=== PATIENT | female | born 1960 | race Caucasian/White ===

== ENCOUNTER 2016-07-27 02:30 | Emergency (ER) | payer OTHER, MEDICAID ==
[~2016-07-27] VITALS: Ht 162.6 cm; Wt 100.0 kg
[~2016-07-27 02:30] MED LIST: ALBU8.5H5 INH; ALPR0.5T10 PO; ASPI-650 PO; CHOL4POW3 PO; DIAZ5TAB PO; ESOM40CA PO; GABA300C10 PO; GABA600T PO; IBUP200C PO; IBUP800T PO; META800T PO; META800T21 PO; METO-93 PO; METR500T PO; ONDA4TAB7 PO; OXCA150T3 PO; OXYC10TA6 PO; OXYC15TA PO; OXYC60TA8 PO; PROM25TA10 PO; PROM50SU6 PO; RANI150T8 PO; VANC1VIA3 PO; VERA120T74 PO
[2016-07-27 02:32] VITALS: BP 120/79
== END 2016-07-27 04:40 | disposition left against medical advice (07) ==
LOC: ED 04:30
DX: M79.605 Pain in left leg (principal); Z53.21 Procedure and treatment not carried out due to patient leaving prior to being seen by health care provider

== ENCOUNTER 2016-07-31 11:17 | Inpatient (IN) | payer OTHER, MEDICAID ==
[~2016-07-31] VITALS: Ht 162.6 cm; Wt 94.1 kg
[2016-07-31] MEDS ORDERED: SODIUM CHLORIDE 0.9% 1,000 ML IV ONE (11:25)
[2016-07-31] MEDS ORDERED: PLEASE ENTER HEIGHT AND WEIGHT MC SCH (11:29)
[2016-07-31] MEDS ORDERED: SODIUM CHLORIDE 0.9% 1,000ML IVBOLUS ONE (11:30)
[2016-07-31] MEDS ORDERED: ONDANSETRON 2MG/ML, 2ML IVPush ONE (11:30)
[2016-07-31] MEDS ORDERED: SODIUM CHLORIDE FLUSH 10ML SYR IVF ONE (11:30)
[2016-07-31] MEDS ORDERED: FAMOTIDINE 20 MG/2 ML IVP ONE (11:30)
[2016-07-31 12:07] LABS: BLOOD UREA NITROGEN 6 mg/dL (7-18)
[2016-07-31 12:10] LABS: ASPARTATE AMINO TRANSFERASE 23 U/L (15-37)
[2016-07-31] MEDS ORDERED: FAMOTIDINE 20 MG/2 ML ONE (12:10)
[2016-07-31] MEDS ORDERED: ONDANSETRON 2MG/ML, 2ML ONE (12:10)
[2016-07-31] MEDS ORDERED: NS + 40MEQ KCL 1,000 ML IV SCH (12:30)
[2016-07-31] MEDS ORDERED: POTASSIUM CHLORIDE 20 MEQ in SODIUM CHLORIDE 0.9% 1,000 ML IV ONE (13:26)
[2016-07-31] MEDS ORDERED: SODIUM CHLORIDE FLUSH 10ML SYR IVF PRN (13:30)
[2016-07-31] MEDS: NS + 40MEQ KCL 1,000 ML IV SCH (14:17)
[2016-07-31] MEDS ORDERED: POLYETHYLENE GLYCOL 17 GM PACKET PO PRN (14:30)
[2016-07-31] MEDS ORDERED: ACETAMINOPHEN 325 MG TABLET PO PRN (14:30)
[2016-07-31] MEDS ORDERED: DOCUSATE 100 MG CAPSULE PO PRN (14:30)
[2016-07-31] MEDS ORDERED: morphine SULFATE 10 MG/ML, 1ML IVPush PRN (14:30)
[2016-07-31] MEDS ORDERED: BISACODYL 10 MG SUPP PR PRN (14:30)
[2016-07-31] MEDS: NICOTINE 14MG/24 HR PATCH.TD24 TD SCH (14:30)
[2016-07-31] MEDS ORDERED: LABETALOL 5MG/ML, 20ML IVPush PRN (14:30)
[2016-07-31] MEDS ORDERED: LORazepam 2 MG/ML, 1ML IVPush PRN (15:00)
[2016-07-31] MEDS ORDERED: NS + 40MEQ KCL 1,000 ML IV ONE (15:05)
[2016-07-31] MEDS ORDERED: MAGNESIUM SULFATE PMX 2GM/50ML 50 ML IV ONE (15:30)
[2016-07-31] MEDS ORDERED: DEXTROSE 50%, 50ML SYRINGE IVPush PRN (16:30)
[2016-07-31] MEDS ORDERED: POTASSIUM CHLORIDE 20 MEQ TAB.ER.PRT PO ONE (16:30)
[2016-07-31] MEDS: INSULIN REGULAR 100 UNITS/ML, 3ML VIAL SQ-INSULIN SCH ×2 (16:30→21:00)
[2016-07-31] MEDS ORDERED: GLUCAGON 1 MG IM PRN (16:30)
[2016-07-31] MEDS ORDERED: DEXTROSE 4 GM TAB.CHEW PO PRN (16:30)
[2016-07-31 16:44] VITALS: BP 167/85
[2016-07-31] MEDS: ENOXAPARIN 40 MG/0.4 ML SQ SCH (16:49)
[2016-07-31 17:12] LABS: DAU SCREEN DISCLAIMER
[2016-07-31 17:18] LABS: HCG UR OBC PASS
[2016-07-31 17:44] VITALS: BP 167/85
[2016-07-31] MEDS: ONDANSETRON 2MG/ML, 2ML IVPush PRN (18:14)
[2016-07-31 20:44] VITALS: BP 147/78
[2016-07-31] MEDS: SODIUM CHLORIDE FLUSH 10ML SYR IVF SCH (21:27)
[2016-07-31] MEDS: FAMOTIDINE 20 MG/2 ML IVPush SCH (21:27)
[2016-08-01] MEDS: ONDANSETRON 2MG/ML, 2ML IVPush PRN ×3 (00:43→20:05)
[2016-08-01 02:37] VITALS: BP 145/83
[2016-08-01] MEDS: ASPIRIN 325 MG TABLET EC PO SCH (05:35)
[2016-08-01 06:11] LABS: BLOOD UREA NITROGEN 8 mg/dL (7-18)
[2016-08-01 06:45] VITALS: BP 145/84
[2016-08-01] MEDS: INSULIN REGULAR 100 UNITS/ML, 3ML VIAL SQ-INSULIN SCH ×4 (07:40→20:06)
[2016-08-01] MEDS: NS + 40MEQ KCL 1,000 ML IV SCH ×2 (09:00→20:05)
[2016-08-01] MEDS: SODIUM CHLORIDE FLUSH 10ML SYR IVF SCH ×2 (09:00→20:05)
[2016-08-01] MEDS: VERAPAMIL ER 120MG TABLET.ER PO SCH (09:43)
[2016-08-01] MEDS: FAMOTIDINE 20 MG/2 ML IVPush SCH ×2 (09:43→20:05)
[2016-08-01] MEDS: POTASSIUM CHLORIDE 20 MEQ TAB.ER.PRT PO SCH ×2 (10:00→20:06)
[2016-08-01 13:51] VITALS: BP 140/81
[2016-08-01] MEDS: NICOTINE 14MG/24 HR PATCH.TD24 TD SCH (14:30)
[2016-08-01] MEDS: ENOXAPARIN 40 MG/0.4 ML SQ SCH (14:30)
[2016-08-01] MEDS ORDERED: GABA400C PO (16:45)
[2016-08-01] MEDS ORDERED: ALPR2TAB5 PO (16:45)
[2016-08-01] MEDS ORDERED: OXYC30TA66 PO (18:44)
[2016-08-01 21:00] VITALS: BP 178/99
[2016-08-01] MEDS ORDERED: LORazepam 2 MG/ML, 1ML IVPush ONE ×2 (23:30)
[2016-08-01 23:52] LABS: ABG COLLECTION SITE RIGHT RADIAL; COLLATERAL CIRCULATION TESTING NORMAL
[2016-08-01 23:54] LABS: BLOOD UREA NITROGEN 12 mg/dL (7-18)
[2016-08-02] MEDS ORDERED: LORazepam 2 MG/ML, 1ML IVPush ONE
[2016-08-02] MEDS ORDERED: LEVETIRACETAM 1,000 MG in SODIUM CHLORIDE 0.9% 100 ML IV ONE
[2016-08-02 04:00] VITALS: BP 158/80
[2016-08-02 04:42] LABS: ABG COLLECTION SITE LEFT RADIAL; COLLATERAL CIRCULATION TESTING NORMAL
[2016-08-02] MEDS: ASPIRIN 325 MG TABLET EC PO SCH (05:57)
[2016-08-02 06:49] LABS: BLOOD UREA NITROGEN 14 mg/dL (7-18)
[2016-08-02] MEDS: INSULIN REGULAR 100 UNITS/ML, 3ML VIAL SQ-INSULIN SCH ×4 (07:00→20:04)
[2016-08-02] MEDS: FAMOTIDINE 20 MG/2 ML IVPush SCH ×2 (07:49→20:04)
[2016-08-02] MEDS: SODIUM CHLORIDE FLUSH 10ML SYR IVF SCH ×2 (07:50→20:04)
[2016-08-02] MEDS: POTASSIUM CHLORIDE 20 MEQ TAB.ER.PRT PO SCH ×2 (07:50→16:28)
[2016-08-02] MEDS: VERAPAMIL ER 120MG TABLET.ER PO SCH (07:50)
[2016-08-02] MEDS: NS + 40MEQ KCL 1,000 ML IV SCH ×2 (09:19→20:04)
[2016-08-02] MEDS: NICOTINE 14MG/24 HR PATCH.TD24 TD SCH (16:23)
[2016-08-02] MEDS: ENOXAPARIN 40 MG/0.4 ML SQ SCH (16:23)
[2016-08-02] MEDS: CEFTRIAXONE PMX 1GM/50ML 50 ML IV SCH (17:37)
[2016-08-02] MEDS: METRONIDAZOLE PMX 500MG/100ML 100 ML IV SCH (17:37)
[2016-08-02 18:30] LABS: ABG COLLECTION SITE RIGHT RADIAL; COLLATERAL CIRCULATION TESTING NORMAL
[2016-08-03] MEDS: METRONIDAZOLE PMX 500MG/100ML 100 ML IV SCH ×3 (01:45→17:39)
[2016-08-03 05:02] VITALS: BP 115/74
[2016-08-03] MEDS: ASPIRIN 325 MG TABLET EC PO SCH ×2 (06:00→06:02)
[2016-08-03] MEDS: INSULIN REGULAR 100 UNITS/ML, 3ML VIAL SQ-INSULIN SCH ×4 (06:02→19:49)
[2016-08-03] MEDS: VERAPAMIL ER 120MG TABLET.ER PO SCH ×2 (09:00→14:02)
[2016-08-03] MEDS: FAMOTIDINE 20 MG/2 ML IVPush SCH ×2 (09:58→20:16)
[2016-08-03] MEDS: SODIUM CHLORIDE FLUSH 10ML SYR IVF SCH ×2 (09:58→20:16)
[2016-08-03] MEDS ORDERED: DEXTROSE 50%, 50ML VIAL ONE (12:44)
[2016-08-03] MEDS: NICOTINE 14MG/24 HR PATCH.TD24 TD SCH (14:02)
[2016-08-03] MEDS: ENOXAPARIN 40 MG/0.4 ML SQ SCH (16:24)
[2016-08-03] MEDS: CEFTRIAXONE PMX 1GM/50ML 50 ML IV SCH (17:39)
[2016-08-04] MEDS: METRONIDAZOLE PMX 500MG/100ML 100 ML IV SCH ×3 (02:36→16:55)
[2016-08-04 04:58] LABS: ASPARTATE AMINO TRANSFERASE 40 U/L (15-37); BLOOD UREA NITROGEN 15 mg/dL (7-18)
[2016-08-04] MEDS: ASPIRIN 325 MG TABLET EC PO SCH (05:41)
[2016-08-04] MEDS: INSULIN REGULAR 100 UNITS/ML, 3ML VIAL SQ-INSULIN SCH ×4 (07:00→20:53)
[2016-08-04] MEDS: VERAPAMIL ER 120MG TABLET.ER PO SCH (09:00)
[2016-08-04] MEDS: FAMOTIDINE 20 MG/2 ML IVPush SCH (09:00)
[2016-08-04] MEDS: SODIUM CHLORIDE FLUSH 10ML SYR IVF SCH ×2 (09:00→21:00)
[2016-08-04 09:30] VITALS: BP 145/89
[2016-08-04 12:15] VITALS: BP 135/80
[2016-08-04] MEDS: ENOXAPARIN 40 MG/0.4 ML SQ SCH (16:50)
[2016-08-04] MEDS: NICOTINE 14MG/24 HR PATCH.TD24 TD SCH (16:50)
[2016-08-04] MEDS: CEFTRIAXONE PMX 1GM/50ML 50 ML IV SCH (16:55)
[2016-08-04 19:41] VITALS: BP 133/84
[2016-08-04] MEDS: FAMOTIDINE 20 MG TABLET PO SCH (22:36)
[2016-08-04] MEDS ORDERED: ONDANSETRON ODT 4 MG ONE (22:52)
[2016-08-05 00:49] VITALS: BP 152/92
[2016-08-05] MEDS: METRONIDAZOLE PMX 500MG/100ML 100 ML IV SCH ×2 (02:00→10:00)
[2016-08-05] MEDS: ASPIRIN 81 MG TABLET EC PO SCH (06:02)
[2016-08-05 06:09] LABS: BLOOD UREA NITROGEN 15 mg/dL (7-18)
[2016-08-05] MEDS: INSULIN REGULAR 100 UNITS/ML, 3ML VIAL SQ-INSULIN SCH ×4 (07:00→20:47)
[2016-08-05] MEDS ORDERED: FAMOTIDINE 20 MG TABLET PO SCH (09:00)
[2016-08-05] MEDS: SODIUM CHLORIDE FLUSH 10ML SYR IVF SCH ×2 (09:00→20:46)
[2016-08-05] MEDS: FAMOTIDINE 20 MG TABLET PO SCH ×2 (11:03→21:07)
[2016-08-05] MEDS: VERAPAMIL ER 120MG TABLET.ER PO SCH (11:03)
[2016-08-05] MEDS: DIVALPROEX 500 MG TAB.ER.24H PO SCH (11:03)
[2016-08-05] MEDS: NICOTINE 14MG/24 HR PATCH.TD24 TD SCH (14:30)
[2016-08-05] MEDS: POTASSIUM CHLORIDE 20 MEQ TAB.ER.PRT PO SCH (17:14)
[2016-08-05] MEDS: ENOXAPARIN 40 MG/0.4 ML SQ SCH (17:15)
[2016-08-05 19:29] VITALS: BP 118/72
[2016-08-05] MEDS: ATORVASTATIN 10 MG TABLET PO SCH (21:07)
[2016-08-06 03:22] VITALS: BP 135/79
[2016-08-06] MEDS: ASPIRIN 81 MG TABLET EC PO SCH (05:32)
[2016-08-06 05:44] LABS: BLOOD UREA NITROGEN 13 mg/dL (7-18)
[2016-08-06] MEDS: INSULIN REGULAR 100 UNITS/ML, 3ML VIAL SQ-INSULIN SCH ×4 (07:00→21:00)
[2016-08-06 07:48] VITALS: BP 122/81
[2016-08-06] MEDS: SODIUM CHLORIDE FLUSH 10ML SYR IVF SCH ×2 (09:00→21:00)
[2016-08-06] MEDS: DIVALPROEX 500 MG TAB.ER.24H PO SCH (10:08)
[2016-08-06] MEDS: FAMOTIDINE 20 MG TABLET PO SCH ×2 (10:08→22:18)
[2016-08-06] MEDS: VERAPAMIL ER 120MG TABLET.ER PO SCH (10:09)
[2016-08-06] MEDS: POTASSIUM CHLORIDE 20 MEQ TAB.ER.PRT PO SCH ×2 (10:09→18:12)
[2016-08-06 12:55] VITALS: BP 130/84
[2016-08-06] MEDS: NICOTINE 14MG/24 HR PATCH.TD24 TD SCH (14:30)
[2016-08-06] MEDS: ENOXAPARIN 40 MG/0.4 ML SQ SCH (18:14)
[2016-08-06] MEDS: ATORVASTATIN 10 MG TABLET PO SCH (22:18)
[2016-08-06 23:28] VITALS: BP 128/86
[2016-08-07 02:30] VITALS: BP 133/80
[2016-08-07] MEDS: ASPIRIN 81 MG TABLET EC PO SCH (05:16)
[2016-08-07 05:44] LABS: BLOOD UREA NITROGEN 13 mg/dL (7-18)
[2016-08-07 06:52] VITALS: BP 119/77
[2016-08-07] MEDS: INSULIN REGULAR 100 UNITS/ML, 3ML VIAL SQ-INSULIN SCH ×4 (07:00→21:00)
[2016-08-07] MEDS: FAMOTIDINE 20 MG TABLET PO SCH ×2 (10:04→21:20)
[2016-08-07] MEDS: DIVALPROEX 500 MG TAB.ER.24H PO SCH (10:04)
[2016-08-07] MEDS: VERAPAMIL ER 120MG TABLET.ER PO SCH (10:04)
[2016-08-07] MEDS: POTASSIUM CHLORIDE 20 MEQ TAB.ER.PRT PO SCH (10:04)
[2016-08-07 13:17] VITALS: BP 127/80
[2016-08-07] MEDS: NICOTINE 14MG/24 HR PATCH.TD24 TD SCH (16:42)
[2016-08-07] MEDS: ENOXAPARIN 40 MG/0.4 ML SQ SCH (16:43)
[2016-08-07 18:46] VITALS: BP 120/77
[2016-08-07] MEDS ORDERED: MELATONIN 3 MG TABLET PO SCH (21:00)
[2016-08-07] MEDS: ATORVASTATIN 10 MG TABLET PO SCH (21:20)
[2016-08-08 01:13] VITALS: BP 113/77
[2016-08-08] MEDS: ASPIRIN 81 MG TABLET EC PO SCH (05:09)
[2016-08-08 07:43] VITALS: BP 118/84
[2016-08-08] MEDS: INSULIN REGULAR 100 UNITS/ML, 3ML VIAL SQ-INSULIN SCH ×2 (08:15→11:30)
[2016-08-08] MEDS: FAMOTIDINE 20 MG TABLET PO SCH (08:33)
[2016-08-08] MEDS: VERAPAMIL ER 120MG TABLET.ER PO SCH (08:34)
[2016-08-08] MEDS: DIVALPROEX 500 MG TAB.ER.24H PO SCH (08:34)
[2016-08-08] MEDS ORDERED: DIVA500T4 PO (11:56)
[2016-08-08] MEDS ORDERED: QUET25TA PO (11:56)
[2016-08-08] MEDS ORDERED: ASPI-621 PO (11:56)
[2016-08-08] MEDS ORDERED: VERA120T74 PO (11:56)
[2016-08-08] MEDS ORDERED: ATOR10TA9 PO (11:56)
[2016-08-08 13:28] VITALS: BP 118/79
[2016-08-08] MEDS ORDERED: QUETIAPINE 25MG TABLET PO SCH (21:00)
== END 2016-08-08 17:23 | disposition home or self-care (01) | DRG 70 ==
LOC: ED 13:00 → EDIP 13:26 → 4WST 15:46 → CSU 08-02 00:18 → CCU 08-02 17:34 → 4EST 08-04 10:03
PROVIDERS: ADMIT Internal Medicine; ATTEND Internal Medicine
DX: G93.41 Metabolic encephalopathy (principal); I63.9 Cerebral infarction, unspecified; F11.20 Opioid dependence, uncomplicated; F31.10 Bipolar disorder, current episode manic without psychotic features, unspecified; I50.32 Chronic diastolic (congestive) heart failure; K52.9 Noninfective gastroenteritis and colitis, unspecified; E86.0 Dehydration; E87.6 Hypokalemia; E11.42 Type 2 diabetes mellitus with diabetic polyneuropathy; E11.65 Type 2 diabetes mellitus with hyperglycemia; F12.90 Cannabis use, unspecified, uncomplicated; F17.210 Nicotine dependence, cigarettes, uncomplicated; F94.0 Selective mutism; G35 Multiple sclerosis; G89.29 Other chronic pain; I07.1 Rheumatic tricuspid insufficiency; I48.91 Unspecified atrial fibrillation; J44.9 Chronic obstructive pulmonary disease, unspecified; R56.9 Unspecified convulsions; Z66 Do not resuscitate; Z80.3 Family history of malignant neoplasm of breast; Z82.5 Family history of asthma and other chronic lower respiratory diseases; Z86.19 Personal history of other infectious and parasitic diseases; Z86.73 Personal history of transient ischemic attack (TIA), and cerebral infarction without residual deficits; Z90.49 Acquired absence of other specified parts of digestive tract; Z90.710 Acquired absence of both cervix and uterus; Z91.19 Patient's noncompliance with other medical treatment and regimen; Z91.5 Personal history of self-harm; Z95.0 Presence of cardiac pacemaker
CPT/HCPCS: 36415; 36600; 70450; 71010; 74000; 80048; 80053; 80061; 80307; 81001; 81025; 82010; 82803; 82962; 83605; 83690; 83735; 84100; 85025; 87040; 87046; 87081; 87899; 89055; 93005; 93306; 93880; 95819; 96374; 96375; J0696; J1650; J1953; J2405; 92523-GN; J2060; J3475; J3480; J7030; S0028